=== PATIENT | male | born 1975 | race Caucasian/White ===

== ENCOUNTER 2022-07-31 11:06 | Emergency (ER) | payer OTHER, SELFPAY ==
--- NOTE | ~2022-07-31 | CT_ITS ---
EXAMINATION: CT abdomen pelvis wo con DATE: 07/31/2022 11:56 INDICATION: Left flank pain TECHNIQUE: Computed tomography (CT) of the abdomen and pelvis was performed without intravenous contr ast. The dose-length product (DLP) was 1749.58 mGy-cm. Automated exposure control and iterative recon struction technique were employed. COMPARISON: None FINDINGS: The lung bases are clear. The heart size is normal. The liver, spleen, pancreas, gallbladde r, and adrenal glands are normal. The kidneys are unremarkable. No stones are identified in the kidne ys, ureters, or bladder. No hydronephrosis or hydroureter. No pathologically enlarged abdominal or pe lvic lymph nodes are identified. No free intraperitoneal gas or evidence of bowel obstruction. The ap pendix is normal. There is a fat-containing umbilical hernia. IMPRESSION: 1. No CT correlate for the patient's symptoms. Reviewed, dictated and finalized at location A. [employer]
[2022-07-31 11:25] VITALS: BP 147/87; PULSE 70; RESP 18; TEMP 36.7; O2SAT 99
[2022-07-31 11:42] LABS: Appearance Urine Clear (Clear); Basophils Absolute Auto 0.1 K/mm3 (0.0-0.1); Basophils Percent Auto 0.9 % (0.2-1.2); Bilirubin Urine Negative (Negative); Blood Urine Trace-intact (Negative); Color Urine Yellow (Yellow); Eosinophils Absolute Auto 0.3 K/mm3 (0-0.3); Eosinophils Percent Auto 4.6 % (0-4.4); Glucose Urine UA Negative (Negative); Hematocrit 46.9 % (42.0-52.0); Hemoglobin 16.3 g/dL (14.0-18.0); Immature Granulocyte Absolute 0.03 K/mm3 (0.00-0.031); Immature Granulocyte Percent A 0.5 % (0-0.5); Ketones Urine Negative (Negative); Leukocyte Esterase Ur Negative LEU/UL (Negative); Lymphocytes Absolute Auto 2.56 K/mm3 (0.9-3.2); Lymphocytes Percent Auto 39.2 % (18.3-44.2); Mean Corpuscular HGB Conc 34.8 g/dl (32-36); Mean Corpuscular Hemoglobin 30.2 pg (26-34); Mean Platelet Volume 9.7 fl (7.4-10.4); Monocytes Absolute Auto 0.7 K/mm3 (0.1-0.6); Neutrophils Absolute Auto 2.9 K/mm3 (1.3-6.7); Neutrophils Percent Auto 44.8 % (45.5-73.1); Nitrate Urine Negative (Negative); Platelet Count Result 227 k/mm3 (150-375); Protein Urine Negative (Negative); Red Blood Count 5.39 M/mm3 (4.6-6.20); Red Cell Distribution Width 13.8 % (11.5-14.5); Specific Grav Ur >= 1.030 (1.001-1.035); Urobilinogen Urine 0.2 mg/dL (<2.0); White Blood Count 6.5 K/mm3 (4.5-10.0); pH Urine 5.5 (5.0-9.0)
--- NOTE | 2022-07-31 11:47 | ED.ABDPAIN ---
HPI - Abdominal Pain General Chief Complaint: Abdominal Pain Stated Complaint: kidney pain Time Seen by Provider: 07/31/22 11:26 History of Present Illness HPI narrative: 46-year-old male here for evaluation of left flank pain over the past day. Patient states the pain is intermittent in nature, present in his left flank and occasionally wrapping around to his left groin. He states that today he began to develop some dysuria which prompted urgent care evaluation. There, he had a KUB which showed hydronephrosis and was referred to the ED. Patient had IM Toradol at the urgent care with relief of his pain, currently pain-free. He denies any fevers, chills, nausea, vomiting, constipation, hematuria. No history of kidney stones. Related Data Home Medications Medication Instructions Recorded Confirmed Topamax 07/31/22 Allergies Allergy/AdvReac Type Severity Reaction Status Date / Time No Known Allergies Allergy Verified 07/31/22 11:40 Review of Systems Review of Systems: Gen: Denies fevers or chills Eyes: Denies eye pain or visual change ENT: Denies congestion Respiratory: Denies shortness of breath or cough CV: Denies chest pain or palpitations GI: Denies abdominal pain nausea, emesis or diarrhea reports dysuria Musculoskeletal: Reports flank pain Neuro: Denies numbness, tingling, weakness or focal weakness Skin: Denies rash Except as documented, all other systems reviewed and negative Exam Narrative: APPEARANCE: Well appearing, no pain in distress, well-nourished. Head: Normocephalic and atraumatic. EYES: PERRLA/EOMI, conjunctivae clear NOSE: No nasal drainage EARS: External ear normal in appearance THROAT: Oropharynx is clear. Mucous membranes are moist. NECK: Supple. No adenopathy, no masses. RESPIRATORY: Airway patent, respirations nonlabored. Clear to auscultation bilaterally, no rales, rhonchi, wheezing. CARDIOVASCULAR: Regular rate and rhythm without murmurs, rubs, or gallops. ABDOMINAL: Normoactive bowel sounds. Soft, nontender, nondistended. No rebound tenderness or guarding. MUSCULOSKELETAL: Slight CVA tenderness on the left. Extremities are warm and well-perfused. Moves all extremities well. No edema. NEURO: Normal speech. No focal neurologic deficits. SKIN: Skin is warm and dry. No rashes. PSYCHIATRIC: Normal affect/mood. Course Vital Signs Vital signs: Vital Signs Temperature 98.1 F 07/31/22 11:25 Pulse Rate 70 07/31/22 11:25 Respiratory Rate 18 07/31/22 11:25 Blood Pressure 147/87 H 07/31/22 11:25 Pulse Oximetry 99 07/31/22 11:25 Oxygen Delivery Room Air 07/31/22 11:25 Temperature 98.1 F 07/31/22 11:25 Pulse Rate 70 07/31/22 11:25 Respiratory Rate 18 07/31/22 11:25 Blood Pressure 147/87 H 07/31/22 11:25 Pulse Oximetry 99 07/31/22 11:25 Oxygen Delivery Room Air 07/31/22 11:25 MDM - Abdominal Pain MDM Narrative Medical decision making narrative: 46-year-old male sent here from urgent care facility due to abnormal appearance of kidney on x-ray and for kidney stone rule out. Patient is nontoxic in appearance and is actually pain-free at time of my evaluation. He has normal vital signs, very mild CVA tenderness on exam. Basic labs are unremarkable. Abdomen pelvis CT shows nonobstructing nephrolithiasis on the left but no evidence of hydroureter or hydronephrosis. UA is clear. It is possible that patient passed a kidney stone prior to arrival. He is stable for outpatient management and follow-up at this time given that he is pain-free and has no abnormalities on work-up today. Patient is agreeable to this plan, return precautions were discussed and he voiced understanding. Lab Data 07/31/22 11:35 07/31/22 11:35 Labs: Lab Results 07/31/22 07/31/22 07/31/22 Range/Units 11:35 11:35 12:04 WBC 6.5 (4.5-10.0) K/mm3 RBC 5.39 (4.6-6.20) M/mm3 Hgb 16.3 (14.0-18.0) g/dL Hct 46.9 (42.0-52.0) %
[2022-07-31 11:48] LABS: Mucus Urine Rare /lpf; RBC Urine 0-2 /hpf (0-2); WBC Urine 0-3 /hpf
[2022-07-31 11:49] LABS: Add Urine Microscopic? YES
[2022-07-31 12:22] LABS: Alanine Aminotransferase 37 U/L (6-50); Alkaline Phosphatase 75 U/L (38-126); Anion Gap 6 mmol/L (8-16); Aspartate Amino Transferase 25 U/L (17-59); Bilirubin,Total 0.6 mg/dL (0.2-1.3); Blood Urea Nitrogen 14 mg/dL (9-20); Calcium 8.2 mg/dL (8.4-10.2); Carbon Dioxide 27 mmol/L (22-30); Chloride 103 mmol/L (98-107); Estimated CRCL calculation 115 ml/min; Estimated Glomerular Filt Rate > 60; Glucose 91 mg/dL (65-110); Potassium 3.7 mmol/L (3.4-5.0); Sodium 136 mmol/L (137-145)
== END 2022-07-31 13:09 | disposition home or self-care (01) ==
PROVIDERS: Emergency Provider Physician Assistant
DX: R10.9 Unspecified abdominal pain (principal)
CPT/HCPCS: 36415; 74176; 80053; 81001; 85025; 99284